=== PATIENT | female | born 1950 | race Hispanic/Latino ===

== ENCOUNTER → 2020-07-12 | Outpatient (CLI) | payer MEDICARE ==
[~2020-07-12] MED LIST: ANTARA PO; ATORVASTATIN PO; CYCLOBENZAPRINE10 MG PO; DIOVAN80 MG PO; GLUMETZA500 MG PO; SYNTHROID50 MCG PO; TRULICITY SC
== END ==
LOC: US 12:47
PROVIDERS: ATTEND Internal Medicine
DX: R10.13 Epigastric pain (principal); R10.10 Upper abdominal pain, unspecified
CPT/HCPCS: 76705

== ENCOUNTER → 2020-07-24 | Day surgery (SDC) | payer MEDICARE ==
[~2020-07-24] MED LIST changes: +ATORVASTATIN CA10 MG PO; +BUPIVACAINE 0.25% 30ML SDV ONE; +DEXAMETHASONE SOD PHOS INJ 4 MG/ML VIAL ONE; +FISH OIL 1,0001 EAC2 PO; +GLYCOPYRROLATE INJ 0.2 MG/ML VIAL ONE; +KETOROLAC TROMETHAMINE 30 MG/ML VIAL ONE; +LABETALOL HCL 5 MG/ML 20ML VIAL ONE; +LIDOCAINE HCL 2% LOCAL INJ 5 ML SDV VIAL INJ ONE; +METFORMIN HCL500 MG PO; +NEOSTIGMINE 1 MG/ML 10ML VIAL ONE; +ONDANSETRON HCL INJ 2MG/ML 2ML 2 MG/ML VIAL ONE; +POVIDONE IODINE 0.05% 0.05 % ML PO ONE; +PROPOFOL IV EMULSION 10 MG/ML 20 ML VIAL ONE; +ROCURONIUM BROMIDE 10 MG/ML 5ML VIAL IV ONE; +SEVOFLURANE INHAL SOLN 250 ML PEN BTL ONE; +VESICARE5 MG PO
[2020-07-24 10:32] VITALS: BP 166/76
== END | disposition home or self-care (01) ==
LOC: OR 06:22
PROVIDERS: ATTEND Surgery
DX: K80.10 Calculus of gallbladder with chronic cholecystitis without obstruction (principal); K82.8 Other specified diseases of gallbladder; K76.0 Fatty (change of) liver, not elsewhere classified; E11.9 Type 2 diabetes mellitus without complications; I10 Essential (primary) hypertension; I49.9 Cardiac arrhythmia, unspecified; Z88.8 Allergy status to other drugs, medicaments and biological substances; Z01.812 Encounter for preprocedural laboratory examination; Z01.818 Encounter for other preprocedural examination; Z20.822 Contact with and (suspected) exposure to COVID-19; Z79.84 Long term (current) use of oral hypoglycemic drugs
CPT/HCPCS: 36415; 47562; 71046; 82948; 88304; C1766; J1100; J1885; J2001; J2405; J2704; J2710; J3490; U0002

== ENCOUNTER → 2024-10-19 | Day surgery (SDC) | payer MEDICARE ==
[2024-10-16 09:51] LABS: BASOPHILS % 0.7 % (0.0-1.0); EOSINOPHILS % 6.1 % (0.0-6.0); LYMPHOCYTES % 23.4 % (18.0-39.1); MONOCYTES % 6.6 % (4.4-11.3); NEUTROPHILS % 63.1 % (38.7-80.0); RED CELL DISTRIBUTION WIDTH 13.2 % (11.7-14.4)
[2024-10-16 10:19] LABS: EST GLOMERULAR FILTRATION RATE 77.0 ML/MIN (>=60)
[~2024-10-19] MED LIST changes: +ASPIRIN81 MG PO; +AZOR 5-20 MG T1 EACH PO; -BUPIVACAINE 0.25% 30ML SDV ONE; -DEXAMETHASONE SOD PHOS INJ 4 MG/ML VIAL ONE; -GLYCOPYRROLATE INJ 0.2 MG/ML VIAL ONE; -KETOROLAC TROMETHAMINE 30 MG/ML VIAL ONE; -LABETALOL HCL 5 MG/ML 20ML VIAL ONE; -NEOSTIGMINE 1 MG/ML 10ML VIAL ONE; +NEURIVA DE-STR1 EACH PO; +OMEPRAZOLE40 MG PO; -ONDANSETRON HCL INJ 2MG/ML 2ML 2 MG/ML VIAL ONE; -POVIDONE IODINE 0.05% 0.05 % ML PO ONE; -ROCURONIUM BROMIDE 10 MG/ML 5ML VIAL IV ONE; -SEVOFLURANE INHAL SOLN 250 ML PEN BTL ONE; +vit b12 PO
[2024-10-19] MEDS: LACTATED RINGER'S 1,000 ML ONE (08:08)
[2024-10-19 09:57] VITALS: TEMP 98
[2024-10-19 10:25] VITALS: BP 144/66; PULSE 74; RESP 16; O2SAT 98
== END | disposition home or self-care (01) ==
LOC: OR 06:46
PROVIDERS: ATTEND Surgery
DX: Z12.11 Encounter for screening for malignant neoplasm of colon (principal); K57.30 Diverticulosis of large intestine without perforation or abscess without bleeding; I10 Essential (primary) hypertension; E78.5 Hyperlipidemia, unspecified; E11.9 Type 2 diabetes mellitus without complications; E03.9 Hypothyroidism, unspecified; Z88.6 Allergy status to analgesic agent; Z79.82 Long term (current) use of aspirin; Z79.890 Hormone replacement therapy; Z79.84 Long term (current) use of oral hypoglycemic drugs; Z90.49 Acquired absence of other specified parts of digestive tract; Z01.810 Encounter for preprocedural cardiovascular examination; Z01.812 Encounter for preprocedural laboratory examination
CPT/HCPCS: 36415 ×2; 71046; 80053; 82948; 85025; 93005; G0121; J2003; J2704; J7121; 45378